=== PATIENT | male | born 1945 | race Caucasian/White ===

== ENCOUNTER 2024-02-22 07:44 | Day surgery (SDC) | payer MEDICARE, OTHER ==
[~2024-02-22] VITALS: Ht 172.7 cm; Wt 74.9 kg
[~2024-02-22 07:44] MED LIST: Balanced Salt Epinephrine Irrigation Solution 500 mL IR SCH; CIPR500 PO; Lidocaine HCl/Pf 1% 5 ML VIAL XX SCH; Moxifloxacin HCL 0.5 MG/0.1 ML 0.4MLSYR RIGHTEYE SCH; NS 500 ML IV ONE; PHENYLEPHRINE\\TROPICAMIDE\\TETRACAINE OPHTHALMIC DILATING SOLN RIGHTEYE PRN; PROM25 PO; Povidone-Iodine 450 DROP/30 ML Solution RIGHTEYE SCH; RXPROM25 PO; Triamcinolone Inj Susp 40 MG / ML 1ML Vial INJ SCH; Triamcinolone Inj Susp 40 MG / ML 1ML Vial ONE
[2024-02-22] MEDS ORDERED: FentaNYL Citrate 50 MCG/ML 2 ML Injection ONE (07:52)
[2024-02-22] MEDS ORDERED: Midazolam HCl 1MG / ML 2ML Vial ONE (07:53)
[2024-02-22] MEDS ORDERED: NS 500 ML IV ONE (08:02)
[2024-02-22] MEDS ORDERED: Amlodipine Bes2.5 MG PO (08:04)
[2024-02-22 09:17] VITALS: BP 117/72
== END 2024-02-22 09:39 | disposition home or self-care (01) ==
LOC: ORSCSDS 07:44
PROVIDERS: Ophthalmology
PROC: 08RJ3JZ Replacement of Right Lens with Synthetic Substitute, Percutaneous Approach (ICD-10-PCS; principal; 2024-02-22 09:00)
DX: H25.811 Combined forms of age-related cataract, right eye (principal); I10 Essential (primary) hypertension; Z85.46 Personal history of malignant neoplasm of prostate; Z79.899 Other long term (current) drug therapy
CPT/HCPCS: J2250; J3010; J3301; J7040; V2632

== ENCOUNTER 2024-02-29 07:13 | Day surgery (SDC) | payer MEDICARE, OTHER ==
[~2024-02-29] VITALS: Ht 172.7 cm; Wt 75.7 kg
[~2024-02-29 07:13] MED LIST changes: +Amlodipine Bes2.5 MG PO; +Lidocaine HCl/Pf 1% 5 ML VIAL ONE; +Moxifloxacin HCL 0.5 MG/0.1 ML 0.4MLSYR LEFTEYE SCH; -Moxifloxacin HCL 0.5 MG/0.1 ML 0.4MLSYR RIGHTEYE SCH; +PHENYLEPHRINE\\TROPICAMIDE\\TETRACAINE OPHTHALMIC DILATING SOLN LEFTEYE PRN; -PHENYLEPHRINE\\TROPICAMIDE\\TETRACAINE OPHTHALMIC DILATING SOLN RIGHTEYE PRN; +Povidone-Iodine 450 DROP/30 ML Solution LEFTEYE SCH; -Povidone-Iodine 450 DROP/30 ML Solution RIGHTEYE SCH
[2024-02-29] MEDS ORDERED: EYE VITAMIN (07:34)
[2024-02-29] MEDS ORDERED: NS 500 ML IV ONE (07:46)
[2024-02-29] MEDS ORDERED: Midazolam HCl 1MG / ML 2ML Vial ONE (08:23)
[2024-02-29 08:54] VITALS: BP 130/76
== END 2024-02-29 09:08 | disposition home or self-care (01) ==
LOC: ORSCSDS 07:13
PROVIDERS: Ophthalmology
PROC: 08RK3JZ Replacement of Left Lens with Synthetic Substitute, Percutaneous Approach (ICD-10-PCS; principal; 2024-02-29 08:30)
DX: H25.812 Combined forms of age-related cataract, left eye (principal); Z96.1 Presence of intraocular lens; I10 Essential (primary) hypertension; Z79.899 Other long term (current) drug therapy
CPT/HCPCS: J2001; J2250; J3301; J7040; V2632

== ENCOUNTER 2025-03-14 10:12 | Emergency (ER) | payer OTHER ==
[~2025-03-14] VITALS: Ht 172.7 cm; Wt 75.0 kg
[~2025-03-14 10:12] MED LIST changes: -Balanced Salt Epinephrine Irrigation Solution 500 mL IR SCH; +EYE VITAMIN; -Lidocaine HCl/Pf 1% 5 ML VIAL ONE; -Lidocaine HCl/Pf 1% 5 ML VIAL XX SCH; -Moxifloxacin HCL 0.5 MG/0.1 ML 0.4MLSYR LEFTEYE SCH; -NS 500 ML IV ONE; -PHENYLEPHRINE\\TROPICAMIDE\\TETRACAINE OPHTHALMIC DILATING SOLN LEFTEYE PRN; -Povidone-Iodine 450 DROP/30 ML Solution LEFTEYE SCH; -Triamcinolone Inj Susp 40 MG / ML 1ML Vial INJ SCH; -Triamcinolone Inj Susp 40 MG / ML 1ML Vial ONE
[2025-03-14 11:36] LABS: Source, Urine Clean Catch
[2025-03-14 11:38] LABS: BASOPHILS ABSOLUTE AUTO 0.03 K/mm3 (0.00-0.23); BASOPHILS PERCENT AUTO 0 % (0-2); EOSINOPHILS ABSOLUTE AUTO 0.01 K/mm3 (0.00-0.68); EOSINOPHILS PERCENT AUTO 0 % (0-6); Hematocrit 43.5 % (37.0-53.0); Hemoglobin 15.5 g/dL (13.5-17.5); IMMATURE GRAN ABSOLUTE AUTO 0.05 K/mm3 (0.00-0.10); IMMATURE GRAN PERCENT AUTO 0 % (0-1); LYMPHOCYTES ABSOLUTE AUTO 3.14 K/mm3 (0.84-5.20); LYMPHOCYTES PERCENT AUTO 24 % (21-46); MONOCYTES ABSOLUTE AUTO 1.21 K/mm3 (0.16-1.47); MONOCYTES PERCENT AUTO 9 % (4-13); Mean Corpuscular HGB Conc 35.6 g/dL (31.5-36.5); Mean Corpuscular Volume 87 fL (80-100); NEUTROPHILS ABSOLUTE AUTO 8.57 K/mm3 (1.96-9.15); NEUTROPHILS PERCENT AUTO 66 % (41-73); NRBC ABSOLUTE 0.00 K/mm3 (0.00-0.02); NRBC Auto 0.0 /100 WBC (0.0-0.2); Platelet Count 171 K/mm3 (150-400); RDW Coefficient Variation 11.9 % (11.7-14.2); RDW Standard Deviation 38.5 fL (35.1-46.3)
[2025-03-14 11:39] LABS: Bilirubin, Urine Neg (Neg); Color, Urine Yellow (P-Yellow); Glucose Qualitative, Urine Neg (Neg); Ketones, Urine Neg (Neg); Leukocyte Esterase, Urine Neg (Neg); Protein, Urine 2+ (Neg); Specific Gravity, Urine 1.010 (1.003-1.022); Urobilinogen, Urine NORM (Normal)
[2025-03-14 11:50] LABS: Red Blood Cells, Urine 50-100 /hpf (0-2); White Blood Cells, Urine 0-2 /hpf (0-5)
[2025-03-14 12:02] LABS: Alanine Aminotransfer (ALT/SGP 39.0 U/L (12-78); Albumin, Blood 2.9 g/dL (3.4-5.0); Albumin/Globulin Ratio 0.7 (0.8-1.8); Anion Gap 7.0 mmol/L (3-11); Aspartate Aminotrans (AST/SGOT 19.0 U/L (12-37); Bilirubin, Total 1.2 mg/dL (0.1-1.0); Blood Urea Nitrogen 24.0 mg/dL (8-24); CO2, Blood 26.0 mmol/L (21-32); Calcium, Blood 8.7 mg/dL (8.5-10.1); Chloride, Blood 91.0 mmol/L (98-108); Creatinine, Blood 1.27 mg/dL (0.60-1.20); Globulin, Blood 3.9 g/dL (2.2-4.0); Glucose, Blood 125.0 mg/dL (70-99); Potassium, Blood 4.3 mmol/L (3.5-5.5); Sodium, Blood 120.0 mmol/L (136-145); Total Protein, Blood 6.8 g/dL (6.4-8.2)
[2025-03-14] MEDS ORDERED: Ondansetron HCl 2 MG / ML 2ML Vial IV ONE (12:55)
[2025-03-14] MEDS ORDERED: FentaNYL Citrate 50 MCG/ML 2 ML Injection IV ONE (12:55)
[2025-03-14 14:16] VITALS: BP 131/81
== END 2025-03-14 15:05 | disposition short-term general hospital (02) ==
LOC: ER 10:12
PROVIDERS: Physician Assistant
DX: D49.4 Neoplasm of unspecified behavior of bladder (principal); N28.89 Other specified disorders of kidney and ureter; E87.1 Hypo-osmolality and hyponatremia; Z79.899 Other long term (current) drug therapy; Z88.5 Allergy status to narcotic agent; Z88.1 Allergy status to other antibiotic agents; Z88.8 Allergy status to other drugs, medicaments and biological substances
CPT/HCPCS: 74177; 80053; 81001; 85025; 96374-59; 96375; 99284-25; J2405; J3010; Q9967

== ENCOUNTER 2025-04-07 08:38 | Day surgery (SDC) | payer MEDICARE, OTHER ==
[~2025-04-07] VITALS: Ht 172.7 cm; Wt 71.3 kg
[~2025-04-07 08:38] MED LIST changes: +COLCHICINE0.6 MG PO; +HYDMOR2 PO; +MASOPHEN325 M2 PO; +MELO7.5 PO; +MIRABEGRON ER25 MG; +MIRALAX17 GM; +ONDA4 PO; +OXYB5
[2025-04-07] MEDS ORDERED: CeFAZolin Sodium 2,000 MG in NS 100 ML IV SCH (08:45)
[2025-04-07 09:44] VITALS: BP 135/89
--- NOTE | 2025-04-07 10:00 | NUR ---
Ambulatory in Day Surgery History, Chart, Medications and Allergies reviewed before start of procedure. Pre-Op teaching done. Pt verbalizes understanding. Patient States Post-Procedure ride home has been arranged.
[2025-04-07] MEDS ORDERED: Dexamethasone Sod Phos 10 MG/ML 1ML VIAL ONE (11:55)
[2025-04-07] MEDS ORDERED: Ondansetron HCl 2 MG / ML 2ML Vial ONE (11:55)
[2025-04-07] MEDS ORDERED: FentaNYL Citrate 50 MCG/ML 2 ML Injection IV PRN ×2 (12:35)
[2025-04-07] MEDS ORDERED: ePHEDrine Sulfate 50 MG/ML 1ML Injection ONE (12:35)
[2025-04-07] MEDS ORDERED: Ondansetron HCl 2 MG / ML 2ML Vial IV PRN (12:35)
[2025-04-07 12:45] VITALS: BP 143/94
[2025-04-07] MEDS ORDERED: Ketorolac Tromethamine 15mg Vial IV PRN (12:45)
[2025-04-07 12:50] VITALS: BP 140/79
[2025-04-07 12:55] VITALS: BP 135/67
[2025-04-07 13:00] VITALS: BP 144/88
--- NOTE | 2025-04-07 13:52 | NUR ---
PT VITAL SIGNS STABLE T/O STAY, WENT TO RECORD VITALS AND MONITOR CLEARED THE HISTORY. Discharge instructions reviewed with patient. Patient verbalizes understanding. Copy given to patient to take home. Patient States Post-Procedure ride home has been arranged. Discharged via wheelchair to private car for ride home. SURGICAL GLUE SITES X2 TO RIGHT CHEST C/D/I. MEDIPORT SUPPLIES GIVEN ALONG WITH DC INSTRUCTIONS TO PATIENT.
== END 2025-04-07 13:35 | disposition home or self-care (01) ==
LOC: ORSCMMR 08:38 → ORD 09:45 → ORSCMMR 13:35
PROVIDERS: Surgery
PROC: 0JH63WZ Insertion of Totally Implantable Vascular Access Device into Chest Subcutaneous Tissue and Fascia, Percutaneous Approach (ICD-10-PCS; principal; 2025-04-07 09:45)
DX: C67.8 Malignant neoplasm of overlapping sites of bladder (principal); I10 Essential (primary) hypertension; Z85.46 Personal history of malignant neoplasm of prostate; Z85.828 Personal history of other malignant neoplasm of skin
CPT/HCPCS: 77001; C1788; J0690; J1100; J1642; J2405; J2704; J7120

== ENCOUNTER 2025-07-02 23:29 | Inpatient (IN) | payer OTHER ==
[~2025-07-02] VITALS: Ht 167.6 cm; Wt 71.0 kg
[2025-07-02] MEDS ORDERED: NS 1,000 ML IV SCH (23:35)
[2025-07-02 23:48] LABS: pH Blood Venous 7.34 (7.34-7.37)
[2025-07-03] VITALS (57 sets, daily range): BP systolic 77–125; BP diastolic 52–80
[2025-07-03 00:03] LABS: Hematocrit 28.2 % (37.0-53.0); Hemoglobin 9.9 g/dL (13.5-17.5); Mean Corpuscular HGB Conc 35.1 g/dL (31.5-36.5); Mean Corpuscular Volume 96 fL (80-100); NRBC ABSOLUTE 0.00 K/mm3 (0.00-0.02); NRBC Auto 0.0 /100 WBC (0.0-0.2); Platelet Count 123 K/mm3 (150-400); RDW Coefficient Variation 13.5 % (11.7-14.2); RDW Standard Deviation 47.8 fL (35.1-46.3)
[2025-07-03 00:22] LABS: Alanine Aminotransfer (ALT/SGP 101 U/L (12-78); Albumin, Blood 2.5 g/dL (3.4-5.0); Albumin/Globulin Ratio 0.9 (0.8-1.8); Anion Gap 16 mmol/L (3-11); Aspartate Aminotrans (AST/SGOT 58 U/L (12-37); Bilirubin, Total 1.2 mg/dL (0.1-1.0); Blood Urea Nitrogen 66 mg/dL (8-24); CO2, Blood 16 mmol/L (21-32); Calcium, Blood 8.0 mg/dL (8.5-10.1); Chloride, Blood 102 mmol/L (98-108); Creatinine, Blood 3.17 mg/dL (0.60-1.20); Ethanol (Alcohol), Blood, Med <3 mg/dL; Globulin, Blood 2.7 g/dL (2.2-4.0); Glucose, Blood 98 mg/dL (70-99); Magnesium, Blood 2.0 mg/dL (1.6-2.4); Potassium, Blood 4.2 mmol/L (3.5-5.5); Sodium, Blood 130 mmol/L (136-145); Total Protein, Blood 5.2 g/dL (6.4-8.2)
[2025-07-03 00:54] LABS: BAND PERCENT MAN 22 % (0-8); BASOPHILS ABSOLUTE MAN 0.00 K/mm3 (0.00-0.23); BASOPHILS PERCENT MAN 0 % (0-2); EOSINOPHILS ABSOLUTE MAN 0.00 K/mm3 (0.00-0.68); EOSINOPHILS PERCENT MAN 0 % (0-6); LYMPHOCYTES ABSOLUTE MAN 2.00 K/mm3 (0.84-5.20); LYMPHOCYTES PERCENT MAN 40 % (21-46); METAMYELOCYTE ABSOLUTE MAN 0.05 K/mm3 (0.00-0.00); METAMYELOCYTE PERCENT MAN 1 % (0-0); MONOCYTES ABSOLUTE MAN 0.05 K/mm3 (0.16-1.47); MONOCYTES PERCENT MAN 1 % (4-13); NEUTROPHILS ABSOLUTE MAN 2.91 K/mm3 (1.96-9.15); SEG NEUTROPHILS PERCENT MAN 36 % (41-73)
[2025-07-03] MEDS ORDERED: Piperacillin/Tazobactam Sod 4.5 GM in NS 100 ML IV ONE (01:10)
[2025-07-03 01:16] LABS: U Amphetamine Screen Not Detected; U Barbiturate Screen Not Detected; U Benzodiazapine Screen Not Detected; U Buprenorphine Screen Not Detected; U Cannabinoids Screen Not Detected; U Cocaine Screen Not Detected; U Methadone Screen Not Detected; U Methamphetamine Screen Not Detected; U Opiates Screen Not Detected; U Oxycodone Screen Not Detected; U Phencyclidine Screen Not Detected
[2025-07-03 01:18] LABS: Influenza A, PCR NEGATIVE (NEGATIVE); Influenza B, PCR NEGATIVE (NEGATIVE); Resp Syncytial Virus, PCR NEGATIVE (NEGATIVE); SARS-Cov-2 (COVID-19) PCR, MMC NEGATIVE (NEGATIVE)
[2025-07-03] MEDS ORDERED: Sodium Bicarb 8.4% Inj 100 MEQ in Dextrose 5% 1,000 ML IV SCH (02:25)
[2025-07-03] MEDS ORDERED: Albumin (Human) 25gm/100ml 100 ML IV ONE (02:30)
[2025-07-03] MEDS ORDERED: NS 1,000 ML IV SCH (02:50)
[2025-07-03 03:00] LABS: Prothrombin Time Results 11.9 Sec (9.7-11.5)
[2025-07-03] MEDS ORDERED: Vancomycin (Pharmacy Consult) IV SCH (03:20)
[2025-07-03] MEDS ORDERED: NS 500 ML IV SCH (05:10)
--- NOTE | 2025-07-03 05:24 | NUR ---
SHIFT SUMMARY PT ARRIVED TO UNIT AROUND 0400. ON 10L OXYMASK, SATS >95%. HR 95, BP CONTINUED TO DECLINE. LOW DOSE LEVO STARTED TO MAINTAIN MAPS > 65. 500ML BOLUS NS ALSO ORDERED. DENIES CP/PRESSURE. HAS MULTIPLE SURGICAL INCISIONS FROM SURGERY AT OTHER FACILITY. ALSO HAS NEW STOMA FOR UROSTOMY, GOOD UOP. BILAT IVS DRAW BACK AND FLUSH WELL. NO ACUTE EVENTS. TO BRING IN COPY OF ADVANCE DIRECTIVE LATER TODAY. CALL LIGHT IN REACH.
[2025-07-03] MEDS ORDERED: Cefepime HCl 1,000 MG in NS 100 ML IV SCH (06:52)
[2025-07-03 08:51] LABS: Hematocrit 24.5 % (37.0-53.0); Hemoglobin 8.4 g/dL (13.5-17.5); Mean Corpuscular HGB Conc 34.3 g/dL (31.5-36.5); Mean Corpuscular Volume 99 fL (80-100); NRBC ABSOLUTE 0.00 K/mm3 (0.00-0.02); NRBC Auto 0.0 /100 WBC (0.0-0.2); Platelet Count 82 K/mm3 (150-400); RDW Coefficient Variation 13.8 % (11.7-14.2); RDW Standard Deviation 50.2 fL (35.1-46.3)
[2025-07-03] MEDS ORDERED: Lactobacil 2-S.Thermo-Bifido 1 1 Cap PO SCH (09:00)
[2025-07-03] MEDS ORDERED: Piperacillin/Tazobactam Sod 3.375 GM in NS 100 ML IV SCH (09:00)
[2025-07-03] MEDS ORDERED: Heparin Sodium,Porcine 5,000 UNIT/0.5 ML SDV SC SCH (09:00)
[2025-07-03 09:10] LABS: BAND PERCENT MAN 23 % (0-8); BASOPHILS ABSOLUTE MAN 0.00 K/mm3 (0.00-0.23); BASOPHILS PERCENT MAN 0 % (0-2); EOSINOPHILS ABSOLUTE MAN 0.00 K/mm3 (0.00-0.68); EOSINOPHILS PERCENT MAN 0 % (0-6); LYMPHOCYTES ABSOLUTE MAN 0.96 K/mm3 (0.84-5.20); LYMPHOCYTES PERCENT MAN 4 % (21-46); METAMYELOCYTE ABSOLUTE MAN 0.24 K/mm3 (0.00-0.00); METAMYELOCYTE PERCENT MAN 1 % (0-0); MONOCYTES ABSOLUTE MAN 0.24 K/mm3 (0.16-1.47); MONOCYTES PERCENT MAN 1 % (4-13); NEUTROPHILS ABSOLUTE MAN 22.56 K/mm3 (1.96-9.15); SEG NEUTROPHILS PERCENT MAN 71 % (41-73)
[2025-07-03 09:29] LABS: Alanine Aminotransfer (ALT/SGP 116.0 U/L (12-78); Albumin, Blood 2.2 g/dL (3.4-5.0); Albumin/Globulin Ratio 1.0 (0.8-1.8); Anion Gap 14.0 mmol/L (3-11); Aspartate Aminotrans (AST/SGOT 89.0 U/L (12-37); Bilirubin, Total 1.5 mg/dL (0.1-1.0); Blood Urea Nitrogen 49.0 mg/dL (8-24); CO2, Blood 17.0 mmol/L (21-32); Calcium, Blood 7.3 mg/dL (8.5-10.1); Chloride, Blood 108.0 mmol/L (98-108); Creatinine, Blood 2.18 mg/dL (0.60-1.20); Globulin, Blood 2.2 g/dL (2.2-4.0); Glucose, Blood 106.0 mg/dL (70-99); Potassium, Blood 3.9 mmol/L (3.5-5.5); Sodium, Blood 135.0 mmol/L (136-145); Total Protein, Blood 4.4 g/dL (6.4-8.2)
--- NOTE | 2025-07-03 11:18 | NUR ---
Pt. is wake in bed when this silk top hat body maker comes to bedside. Spouse and son are present at bedside and welcome my visit. Facilitated a life review and established rapport with the family. At pts. personal request I came to bedside and prayed with him. Pt. displayed evidence of being greatly encouraged. Family verbalized gratitude for the spiritual care visit and welcomed this silk top hat body maker to return.
--- NOTE | 2025-07-03 13:48 | NUR ---
PALLIATIVE CARE CONSULT REVIEWED, FOR AND SPIRITUAL CARE. PT HAD BLADDER REMOVED DUE TO CANCER, AT [facility]. RETURNED HOME YESTERDAY, BUT ADMITTED TO [facility] WITH SEPSIS, HISTORY BLADDER CANCER. PT IS A FULL CODE CURRENTLY, NO POLST/AD ON FILE.
[2025-07-03] MEDS ORDERED: NS 250 ML IV PRN (15:30)
--- NOTE | 2025-07-03 18:25 | NUR ---
SUMMARY PT A/O X4. MENTATION HAS IMPROVED T/O THE DAY, PT IS NOT FORGETFUL ANYMORE. SKIN COLOR IS BETTER. HAS BEEN OFF LEVOPHED FOR A COUPLE HOURS. EATING MEALS. GOOD OUTPUT FROM UROSTOMY. STOMA IS BEEFY RED AND SURROUNDING SKIN IS INTACT. SITE WHERE DAYSI DRAIN WAS REMOVED PRIOR TO DISCHARGE FROM PREVIOUS HOSPITAL IS STILL OOZING SEROUS FLUID. PICS OF SITE IN CHART. DOCTOR THAT DID THE UROSTOMY SURGERY HAS SPOKEN WITH DR. RICKETTS ABOUT PT FOR COLLABORATION OF CARE. NO SIGN OF DISTRESS.
--- NOTE | 2025-07-03 20:54 | NUR ---
ASSUMPTION OF CARE CARE OF PT ASSUMED FOLLOWING BEDISDE SHIFT REPORT FROM DAY RN. PT LYING IN BED IN NO APPARENT DISTRESS, TALKING WITH , SON AND [id number]. PT IS ALERT AND ORIENTED. TEMP IS 98.4 VIA TEMPORAL MEASUREMENT. NO PAIN. MAEW. SINUS RHYTHM IN THE 70'S WITH SOFT BP, OFF LEVO FOR SEVERAL HOURS, MAP > 65. NO CHEST PAIN/PRESSURE. SATURATION 100% ON RA. LUNGS CLEAR. NO AB PAIN, N/V. BOWEL SOUNDS NORMOACTIVE EXCEPT FOR HYPOACTIVITY IN LOWER LEFT QUADRANT. LLQ HAS OPEN INCISION WITH 0.5CM OF SURROUNDING ERYTHEMA AND COVERED BY MEXTRA SUPERABSORBENT PAD, DRAINING SEROUS FLUID- WILL REPLACE NEEDED. PT HAD ONE SEMI-SOLID BM DURING DAY SHIFT. REQUESTING PRUNE JUICE. UROSTOMY IN PLACE TO RLQ WITH BEEFY RED STOMA AND THREE CATHETERS EXITING IT. DRAINING CLOUDY OMARI URINE. 16427 DURING DAY SHIFT AND 350 FOR HOURS 1800 TO 2000- WILL MONITOR. WILL REVIEW AND CONTINUE PLAN OF CARE.
[2025-07-04] VITALS (23 sets, daily range): BP systolic 92–134; BP diastolic 51–99
[2025-07-04 03:47] LABS: Creatinine, Blood 1.29 mg/dL (0.60-1.20); Vancomycin, Random 7.5 ug/mL
[2025-07-04 04:22] LABS: Hematocrit 20.7 % (37.0-53.0); Hemoglobin 7.2 g/dL (13.5-17.5); Mean Corpuscular HGB Conc 34.8 g/dL (31.5-36.5); Mean Corpuscular Volume 96 fL (80-100); NRBC ABSOLUTE 0.02 K/mm3 (0.00-0.02); NRBC Auto 0.1 /100 WBC (0.0-0.2); Platelet Count 91 K/mm3 (150-400); RDW Coefficient Variation 14.0 % (11.7-14.2); RDW Standard Deviation 49.5 fL (35.1-46.3)
[2025-07-04 04:33] LABS: Alanine Aminotransfer (ALT/SGP 87.0 U/L (12-78); Albumin, Blood 1.9 g/dL (3.4-5.0); Albumin/Globulin Ratio 0.8 (0.8-1.8); Anion Gap 11.0 mmol/L (3-11); Aspartate Aminotrans (AST/SGOT 43.0 U/L (12-37); Bilirubin, Total 0.7 mg/dL (0.1-1.0); Blood Urea Nitrogen 33.0 mg/dL (8-24); CO2, Blood 21.0 mmol/L (21-32); Calcium, Blood 7.5 mg/dL (8.5-10.1); Chloride, Blood 108.0 mmol/L (98-108); Creatinine, Blood 1.24 mg/dL (0.60-1.20); Globulin, Blood 2.5 g/dL (2.2-4.0); Glucose, Blood 90.0 mg/dL (70-99); Potassium, Blood 3.5 mmol/L (3.5-5.5); Sodium, Blood 136.0 mmol/L (136-145); Total Protein, Blood 4.4 g/dL (6.4-8.2)
[2025-07-04 04:39] LABS: BAND PERCENT MAN 20 % (0-8); BASOPHILS ABSOLUTE MAN 0.00 K/mm3 (0.00-0.23); BASOPHILS PERCENT MAN 0 % (0-2); EOSINOPHILS ABSOLUTE MAN 0.23 K/mm3 (0.00-0.68); EOSINOPHILS PERCENT MAN 1 % (0-6); LYMPHOCYTES ABSOLUTE MAN 2.30 K/mm3 (0.84-5.20); LYMPHOCYTES PERCENT MAN 10 % (21-46); MONOCYTES ABSOLUTE MAN 0.69 K/mm3 (0.16-1.47); MONOCYTES PERCENT MAN 3 % (4-13); NEUTROPHILS ABSOLUTE MAN 19.85 K/mm3 (1.96-9.15); SEG NEUTROPHILS PERCENT MAN 66 % (41-73)
--- NOTE | 2025-07-04 07:37 | NUR ---
SHIFT SUMMARY PT LYING IN BED ALERT AND ORIENTED IN NO APPARENT DISTRESS. AFEBRILE. NO COMPLAINTS OF PAIN. PT STEADY ON FEET. SINUS RHYTHM IN THE 70'S WITH SOFT BUT HOLDING BP WITH LEVOPHED OFF SINCE YESTERDAY AFTERNOON. PT DENIES CHEST PAIN/PRESSURE OR SOB. PT HAS SATURATIONS > 92% ON RA. HEMOGLOBIN THIS MORNING WAS 7.2, STOOL GUAIC ORDERED ALONG WITH GI PANEL THAT WAS SENT OFF. TWO BOWEL MOVEMENTS DURING SHIFT. SECOND ONE WAS LOOSE, GREEN/BROWN, WITH SOME BITS OF GELATINOUS MATERIAL. NO AB PAIN, N/V. UROSTOMY IN PLACE TO MUNSON DRAINAGE BAG. OUTPUT WAS >100ML/HR, CLOUDY, OMARI. LLQ DAYSI DRAIN SITE IS STILL DRAINING SEROUS-LIKE FLUID. IT IS COVERED WITH A MEXTRA SUPERABSORBENT PAD; WAS CHANGED TWICE DURING SHIFT. BEDISDE SHIFT REPORT GIVEN TO DAY RN. TKO STILL INFUSING INTO RIGHT CHEST MEDIPORT AT 10ML/HR.
[2025-07-04 08:03] LABS: Campylobacter Sp Not Detected (NOT DETECT)
[2025-07-04 08:04] LABS: E. Coli O157 Not Detected (NOT DETECT); Enteroaggregative E. coli-EAEC Not Detected (NOT DETECT); Enteropathogenic E. coli-EPEC Detected (NOT DETECT); Enterotoxigenic E. coli-ETEC Not Detected (NOT DETECT); Salmonella Sp Not Detected (NOT DETECT); Shiga Toxin-prod E. coli-STEC Not Detected (NOT DETECT); Shigella/Enteroin E. coli-EIEC Not Detected (NOT DETECT); Vibrio Sp Not Detected (NOT DETECT)
[2025-07-04 08:35] LABS: Source, Urine Urostomy Bag
[2025-07-04 08:44] LABS: Bilirubin, Urine Neg (Neg); Color, Urine Yellow (P-Yellow); Glucose Qualitative, Urine Neg (Neg); Ketones, Urine Neg (Neg); Leukocyte Esterase, Urine 3+ (Neg); Protein, Urine 3+ (Neg); Specific Gravity, Urine 1.015 (1.003-1.022); Urobilinogen, Urine NORM (Normal)
--- NOTE | 2025-07-04 08:45 | NUR ---
Spiritual Care Visit. Pt. is awake in his bed when he welcomes my visit. Pt. is pleasant and rapport is quickly re-established. Facilitate a lengthy life review and consider matters of family, belle and community service. Pt. displayed evidence of being alert and engaged. Family came to bedside. This litigation associate met with DIL and will seek to follow up with the Pt. leter in the day. Pt. and family verbalized gratitude for the spiritual care visit.
[2025-07-04 08:52] LABS: Red Blood Cells, Urine 50-100 /hpf (0-2); White Blood Cells, Urine 25-50 /hpf (0-5)
[2025-07-04 12:42] LABS: Stool Occult Blood Guaiac 1 Pos (Neg)
--- NOTE | 2025-07-04 17:39 | NUR ---
SUMMARY PT A/O X4. MOVES SELF IN BED, USES CALL LIGHT. PT WALKED AROUND UNIT A FEW TIMES TODAY. STEADY GAIT, STANDBY ASSIST. SPOKE WITH DR. RICKETTS ABOUT STOOL RESULTS, OK TO CONTINUE TO GIVE HEPARIN. BP STABLE TODAY WITHOUT LEVOPHED. UROSTOMY STOMA IS BEEFY RED, ROUND WITH APPLIANCE STILL INTACT. GOOD URINE OUTPUT. SITE WHERE DAYSI DRAIN WAS ON L SIDE IS STILL DRAINING SEROUS FLUID, DRESSING CHANGED ONE TIME. RA ALL DAY. NO SIGN OF DISTRESS.
[2025-07-04] MEDS ORDERED: Ondansetron HCl 2 MG / ML 2ML Vial IV PRN (18:00)
--- NOTE | 2025-07-04 20:42 | NUR ---
ASSUMPTION OF CARE CARE OF PT ASSUMED FOLLOWING BEDISDE SHIFT REPORT FROM DAY RN. PT LYING IN BED IN NO APPARENT DISTRESS, TALKING WITH . PT IS ALERT AND ORIENTED. TEMP IS 97.4 VIA TEMPORAL MEASUREMENT. NO PAIN. MAEW. SINUS RHYTHM IN THE 70'S WITH SOFT BP, OFF LEVO FOR 30 HOURS, MAP > 65. NO CHEST PAIN/PRESSURE. SATURATION 100% ON RA. LUNGS CLEAR. NO AB PAIN, N/V. BOWEL SOUNDS NORMOACTIVE. LLQ HAS OPEN INCISION WITH 0.25 CM OF SURROUNDING ERYTHEMA AND COVERED BY MEXTRA SUPERABSORBENT PAD, DRAINING SEROUS FLUID- WILL REPLACE NEEDED. UROSTOMY IN PLACE TO RLQ WITH BEEFY RED STOMA AND THREE CATHETERS EXITING IT. DRAINING CLOUDY OMARI URINE. WILL REVIEW AND CONTINUE PLAN OF CARE.
[2025-07-04 20:46] LABS: Hematocrit 21.4 % (37.0-53.0); Hemoglobin 7.4 g/dL (13.5-17.5)
[2025-07-04] MEDS ORDERED: Cefepime HCl 2,000 MG in NS 100 ML IV SCH (21:00)
[2025-07-05] VITALS (23 sets, daily range): BP systolic 108–134; BP diastolic 42–76
[2025-07-05 04:42] LABS: BASOPHILS ABSOLUTE AUTO 0.03 K/mm3 (0.00-0.23); BASOPHILS PERCENT AUTO 0 % (0-2); EOSINOPHILS ABSOLUTE AUTO 0.16 K/mm3 (0.00-0.68); EOSINOPHILS PERCENT AUTO 1 % (0-6); Hematocrit 20.7 % (37.0-53.0); Hemoglobin 7.2 g/dL (13.5-17.5); IMMATURE GRAN ABSOLUTE AUTO 0.36 K/mm3 (0.00-0.10); IMMATURE GRAN PERCENT AUTO 2 % (0-1); LYMPHOCYTES ABSOLUTE AUTO 2.17 K/mm3 (0.84-5.20); LYMPHOCYTES PERCENT AUTO 13 % (21-46); MONOCYTES ABSOLUTE AUTO 0.49 K/mm3 (0.16-1.47); MONOCYTES PERCENT AUTO 3 % (4-13); Mean Corpuscular HGB Conc 34.8 g/dL (31.5-36.5); Mean Corpuscular Volume 96 fL (80-100); NEUTROPHILS ABSOLUTE AUTO 13.48 K/mm3 (1.96-9.15); NEUTROPHILS PERCENT AUTO 81 % (41-73); NRBC ABSOLUTE 0.00 K/mm3 (0.00-0.02); NRBC Auto 0.0 /100 WBC (0.0-0.2); Platelet Count 105 K/mm3 (150-400); RDW Coefficient Variation 13.6 % (11.7-14.2); RDW Standard Deviation 48.6 fL (35.1-46.3)
[2025-07-05 05:04] LABS: Albumin, Blood 1.9 g/dL (3.4-5.0); Anion Gap 8 mmol/L (3-11); Blood Urea Nitrogen 26 mg/dL (8-24); CO2, Blood 24 mmol/L (21-32); Calcium, Blood 7.5 mg/dL (8.5-10.1); Chloride, Blood 108 mmol/L (98-108); Creatinine, Blood 1.05 mg/dL (0.60-1.20); Glucose, Blood 85 mg/dL (70-99); Magnesium, Blood 1.9 mg/dL (1.6-2.4); Phosphorus, Blood 2.7 mg/dL (2.5-4.9); Potassium, Blood 3.6 mmol/L (3.5-5.5); Sodium, Blood 136 mmol/L (136-145)
--- NOTE | 2025-07-05 05:50 | NUR ---
SHIFT SUMMARY PT LYING IN BED ALERT AND ORIENTED, IN NO APPRENT DISTRESS. PT WAS TAKEN ON WALK AROUND UNIT AND FLOOR FOR 20 MIN. NO CHEST PAIN, AB PAIN, N/V, OR SOB DURING OR AFTER THE WALK. PT AFEBRILE ALL SHIFT. MAEW. STEADY ON FEET. SINUS RHYTHM IN THE 60'S AND 70'S, BP STABLE ALL NIGHT WITH AVERAGE MAP OF 75 AND ALWAYS ABOVE 65. AFTER WALK, HR DIPPED INTO HIGH 50'S. PT ON RA WITH SATURATIONS > 92% NO BM. MANY ATTEMPTS. PASSING FLATUS. OLD DAYSI DRAIN SITE IN LLQ STILL DRAINING SEROSANGUINOUS FLUID. IT SEEMED TO BE SLOWING DOWN BUT THEN PROCEEDED TO SOAK THE DRESSING THROUGH IN A COUPLE OF HOURS. CHANGED DRESSING 3 TIMES DURING SHIFT. UROSTOMY SITE/STOMA IS INTACT DRAINING 150ML/HR OF CLOUDY YELLOW URINE. MEDIPORT IN RIGHT CHEST IS ACCESSED AND TKO'D WITH NS. AM LABS SHOW HGB OF 7.2, WBC OF 16.7. BEDSIDE SHIFT REPORT GIVEN TO ONCOMING RN.
[2025-07-05] MEDS ORDERED: Zinc Sulfate 220 MG Cap (Provides 50MG) PO SCH (09:00)
--- NOTE | 2025-07-05 10:42 | NUR ---
AM NOTE: THIS RN ASSUMED CARE OF PT AT APPROX 0700. PT ALERT, ORIENTED X4. ABLE TO COMMUNICATE NEEDS & PARTICIPATE IN CARE. HR 50-60'S, SINUS RHYTHM/SINUS PASCUAL ON MONITOR. SBP 100-120'S, MAP >65. DENIES CHEST PAIN/PRESSURE. LEVO GTT REMAINS OFF. SPO2 >90% ON RA, LUNG SOUNDS CLEAR T/O. AFEBRILE. MEDIPORT TO CHEST INFUSING W/ TKO. PIV'S SALINE LOCKED. NEPHROSTOMY DRAINING YELLOW URINE TO GRAVITY. DRESSING TO LLQ CHANGED DUE TO LARGE AMOUNT OF SEROSANGUINEOUS OUTPUT; DR. ESCUDERO AWARE. ABLE TO WALK THROUGH UNIT THIS AM, TOLERATED WELL. ABLE TO REPOSITION INDEPENDENTLY, SCD'S IN PLACE. CALL LIGHT IN REACH.
[2025-07-05 16:44] LABS: Creatinine, Body Fluid 0.97 mg/dL
--- NOTE | 2025-07-05 17:25 | NUR ---
END OF SHIFT NOTE: NO ACUTE EVENTS THIS SHIFT. VSS. HR 60-70'S, UP TO 90'S W/ ACTIVITY. SINUS RHYTHM ON MONITOR. SBP 100-120'S, MAP >65. SPO2 >90% ON RA. AFEBRILE. UROSTOMY W/ YELLOW URINE OUTPUT, SEDIMENT NOTED. UROSTOMY APPLIANCE CHANGED THIS AFTERNOON. LLQ OLD DAYSI DRAIN SITE W/ MOD-LARGE AMT OUTPUT THIS SHIFT, OSTOMY APPLIANCE APPLIED FOR MEASUREMENT OF OUTPUT. DR. ESCUDERO AWARE, SEE LAB ORDERS. UP TO TOILET FOR BM X2, FORMED/SOFT/BROWN. TOLERATING PO INTAKE WELL. ABLE TO WALK THROUGH UNIT MULTIPLE TIMES T/O THE DAY. MEDIPORT INFUSING TKO AT THIS TIME. CALL LIGHT IN REACH.
[2025-07-05 17:37] LABS: Anion Gap 10.0 mmol/L (3-11); Blood Urea Nitrogen 22.0 mg/dL (8-24); CO2, Blood 23.0 mmol/L (21-32); Calcium, Blood 7.6 mg/dL (8.5-10.1); Chloride, Blood 107.0 mmol/L (98-108); Creatinine, Blood 0.92 mg/dL (0.60-1.20); Glucose, Blood 119.0 mg/dL (70-99); Potassium, Blood 3.7 mmol/L (3.5-5.5); Sodium, Blood 136.0 mmol/L (136-145)
[2025-07-06] VITALS: BP 129/72
[2025-07-06 00:19] VITALS: BP 125/70
--- NOTE | 2025-07-06 00:22 | NUR ---
REPORT GIVEN TO WALDEMAR PRESLEY. PT TRANSPORTED TO ROOM 339 BY W/C WITH ALL BELONGINGS AND PAPERWORK. PT STABLE AT TRANSFER.
[2025-07-06 04:56] VITALS: BP 138/83
[2025-07-06 05:28] LABS: BASOPHILS ABSOLUTE AUTO 0.03 K/mm3 (0.00-0.23); BASOPHILS PERCENT AUTO 0 % (0-2); EOSINOPHILS ABSOLUTE AUTO 0.16 K/mm3 (0.00-0.68); EOSINOPHILS PERCENT AUTO 2 % (0-6); Hematocrit 22.9 % (37.0-53.0); Hemoglobin 7.9 g/dL (13.5-17.5); IMMATURE GRAN ABSOLUTE AUTO 0.06 K/mm3 (0.00-0.10); IMMATURE GRAN PERCENT AUTO 1 % (0-1); LYMPHOCYTES ABSOLUTE AUTO 2.15 K/mm3 (0.84-5.20); LYMPHOCYTES PERCENT AUTO 22 % (21-46); MONOCYTES ABSOLUTE AUTO 0.31 K/mm3 (0.16-1.47); MONOCYTES PERCENT AUTO 3 % (4-13); Mean Corpuscular HGB Conc 34.5 g/dL (31.5-36.5); Mean Corpuscular Volume 97 fL (80-100); NEUTROPHILS ABSOLUTE AUTO 6.96 K/mm3 (1.96-9.15); NEUTROPHILS PERCENT AUTO 72 % (41-73); NRBC ABSOLUTE 0.00 K/mm3 (0.00-0.02); NRBC Auto 0.0 /100 WBC (0.0-0.2); Platelet Count 117 K/mm3 (150-400); RDW Coefficient Variation 13.4 % (11.7-14.2); RDW Standard Deviation 47.7 fL (35.1-46.3)
[2025-07-06 05:47] LABS: Alanine Aminotransfer (ALT/SGP 63.0 U/L (12-78); Albumin, Blood 1.9 g/dL (3.4-5.0); Albumin/Globulin Ratio 0.7 (0.8-1.8); Anion Gap 9.0 mmol/L (3-11); Aspartate Aminotrans (AST/SGOT 25.0 U/L (12-37); Bilirubin, Total 0.4 mg/dL (0.1-1.0); Blood Urea Nitrogen 17.0 mg/dL (8-24); CO2, Blood 24.0 mmol/L (21-32); Calcium, Blood 8.1 mg/dL (8.5-10.1); Chloride, Blood 108.0 mmol/L (98-108); Creatinine, Blood 0.93 mg/dL (0.60-1.20); Globulin, Blood 2.8 g/dL (2.2-4.0); Glucose, Blood 84.0 mg/dL (70-99); Potassium, Blood 3.7 mmol/L (3.5-5.5); Sodium, Blood 137.0 mmol/L (136-145); Total Protein, Blood 4.7 g/dL (6.4-8.2)
[2025-07-06 07:25] VITALS: BP 128/78
--- NOTE | 2025-07-06 08:02 | NUR ---
SHIFT SUMMARY: PT TRANSFERRED FROM ICU TO ROOM 339 VIA WHEELCHAIR AT 0014. PT IS A&OX4, PLEASANT AND COOPERATIVE WITH CARE. VSS ON RA, SATS >95%. SB-SR 50'S-60'S. DENIES PAIN. SBA. PREVIOUS DAYSI DRAIN SITE TO LLQ, DRAINING SMALL AMOUNTS OF SEROUS FLUID, CONNECTED TO AN OSTOMY BAG FOR DRAINAGE. TOLERATING A REGULAR DIET. ILEAL CONDUIT INTACT, DRAINING LARGE AMOUNTS OF YELLOW URINE. STOMA IS BEEFY RED, ROUND AND PROTRUDING ABOVE SKIN. NO BM THIS SHIFT. BED IN LOWEST POSITION, CALL LIGHT WITHIN REACH. CALLS APPROPRIATELY AND IS ABLE TO ADVOCATE NEEDS EFFECTIVELY.
[2025-07-06] MEDS ORDERED: AMOCLA875 PO (10:24)
[2025-07-06] MEDS ORDERED: VISBIOME 112.51 EACH PO (10:25)
--- NOTE | 2025-07-06 11:04 | NUR ---
SHIFT/DISCHARGE SUMMARY: PATIENT DENIES CP/PRESSURE, SOB, N/V AND DIZZINESS. PATIENT HAS HAD NO EVENTS ON TELE, SB/SR HR IN 50'S TO 60'S BPM. PATIENT RECEIVED SCHEDULED MEDS PER EMAR. PATIENT HAS MOD APPETITE, UROSTOMY TO R SIDE ABDOMEN, DRAINING CLEAR YELLOW TO GRAVITY, OLD DAYSI SITE TO L ABDOMEN DRAINING MINIMAL OMARI COLOR OUTPUT. PATIENT HAS HAD NO COMPLAINTS OR DENIES NEW CONCERN THIS SHIFT. MEDIPORT DEACCESS c HEPARIN PER PROTOCOL. PIV DC'D BY DIAMOND DRILLER HELPER. PATIENT DISCHARGE HOME. DISCHARGE INSTRUCTIONS PACKET GIVEN TO PATIENT. PATIENT/SPOUSE AT BEDSIDE EDUCATED ON ADMITTING DX'S OF SEVERE SEPSIS, S/S, TX, NEW RX AND TO F/U c PCP, UROLOGY AND ONCOLOGY. PATIENT AND SPOUSE VERBALIZED UNDERSTANDING c NO FURTHER QUESTIONS. RX WAS FAXED TO PATIENT PREFERRED [facility]. ALL PERSONAL BELONGINGS WERE SENT c PATIENT. PATIENT LEFT THE ROOM AT 1100 TRANSPORTED VIA W/C BY DAVID TO PATIENT ENTRANCE-RIDES AWAITING FOR HIM.
== END 2025-07-06 11:00 | disposition home or self-care (01) | DRG 871 ==
LOC: ER 23:29 → ICUE 07-03 02:09 → MEDS 07-06 00:20 → ENPENDDIS 07-06 09:08 → MEDS 07-06 11:00
PROVIDERS: Emergency Medicine; Internal Medicine; Nurse Practitioner Acute Care; ADMIT Internal Medicine
PROC: 3E03329 Introduction of Other Anti-infective into Peripheral Vein, Percutaneous Approach (ICD-10-PCS; principal; 2025-07-03)
PROC: 3E033XZ Introduction of Vasopressor into Peripheral Vein, Percutaneous Approach (ICD-10-PCS; 2025-07-03)
PROC: 30233J1 Transfusion of Nonautologous Serum Albumin into Peripheral Vein, Percutaneous Approach (ICD-10-PCS; 2025-07-03)
DX: A41.9 Sepsis, unspecified organism (principal); G92.8 Other toxic encephalopathy; R65.21 Severe sepsis with septic shock; N17.9 Acute kidney failure, unspecified; A04.0 Enteropathogenic Escherichia coli infection; I12.9 Hypertensive chronic kidney disease with stage 1 through stage 4 chronic kidney disease, or unspecified chronic kidney disease; N18.2 Chronic kidney disease, stage 2 (mild); R74.8 Abnormal levels of other serum enzymes; Z90.6 Acquired absence of other parts of urinary tract; Z88.2 Allergy status to sulfonamides; Z88.5 Allergy status to narcotic agent; Z88.8 Allergy status to other drugs, medicaments and biological substances; Z85.51 Personal history of malignant neoplasm of bladder; Z90.79 Acquired absence of other genital organ(s); Z79.1 Long term (current) use of non-steroidal anti-inflammatories (NSAID)
CPT/HCPCS: 36415; 71260; 74177; 80048; 80053; 80069; 80202; 80320; 81001; 82270; 82565; 82570; 82803; 82947; 83605; 83735; 83880; 84100; 84484; 85014; 85018; 85025; 85610; 87040; 87086; 87507; 87637; 93005; 93010; 96361; 96365-59; 99285-25; A9270; J0692; J1642; J1644; J2405; J2543; J3373; J7030; J7040; J7050; J7070; P9047; Q9967

== ENCOUNTER → 2025-07-09 | Outpatient (CLI) | payer MEDICARE, OTHER ==
[~2025-07-09] MED LIST changes: +AMOCLA875 PO; +VISBIOME 112.51 EACH PO
== END ==
LOC: LAB SHORT 17:04 → LAB 17:04
DX: R82.998 Other abnormal findings in urine (principal)
CPT/HCPCS: 87086